=== PATIENT | female | born 1955 | race Caucasian/White ===

== ENCOUNTER 2023-03-30 12:14 | Day surgery (SDC) | payer OTHER ==
[~2023-03-30] VITALS: Ht 149.9 cm; Wt 45.8 kg
[2023-03-30 15:14] VITALS: O2SAT 96
[2023-03-30] MEDS ORDERED: NS 50 ML BAG IV ONE ×2 (15:55→17:32)
[2023-03-30] MEDS ORDERED: NS IRRIG SOLN 1000 ML IR ONE ×2 (15:55→17:32)
[2023-03-30] MEDS ORDERED: HEPARIN SODIUM, PORCINE 10,000 UNITS/ 10 ML VIAL ONE (15:55)
[2023-03-30] MEDS ORDERED: SEVOFLURANE 15 MIN GAS INH ONE ×2 (15:55→17:32)
[2023-03-30] MEDS ORDERED: ONDANSETRON HCL 4 MG/2 ML VIAL ONE ×2 (15:55→17:32)
[2023-03-30] MEDS ORDERED: BUPIVACAINE /PF 0.25% 30 ML VIAL INJ ONE ×2 (15:55→17:32)
[2023-03-30] MEDS ORDERED: KETOROLAC TROMETHAMINE 30 MG VIAL ONE (15:55)
[2023-03-30] MEDS ORDERED: ePHEDrine sulfate 50 MG/ML VIAL ONE (17:32)
[2023-03-30] MEDS ORDERED: PROPOFOL 200MG/ 20ML VIAL (DIPRIVAN) IV ONE (17:32)
[2023-03-30] MEDS ORDERED: HEPARIN SODIUM,PORCINE 10,000 UNIT/ML VIAL ONE (17:32)
[2023-03-30] MEDS ORDERED: METOCLOPRAMIDE HCL 10 MG/2 ML VIAL ONE (17:32)
[2023-03-30] MEDS ORDERED: LIDOCAINE 2%, 20 ML MDV ONE (17:32)
[2023-03-30] MEDS ORDERED: LEVOFLOXACIN 500 mg/D5W 100 mL IVPB IV ONE (17:32)
[2023-03-30] MEDS ORDERED: LR 1,000 ML IV SCH (18:00)
[2023-03-30] MEDS ORDERED: HYDROmorphone 2 MG/ML VIAL IVP PRN (18:00)
[2023-03-30] MEDS ORDERED: HYDROmorphone 1 MG/ML INJ. CARTRIDGE IVP PRN (18:00)
[2023-03-30] MEDS ORDERED: HYDROcodone/ACETAMIN 5-325 MG TAB (NORCO/ VICODIN) PO PRN (18:30)
[2023-03-30] MEDS ORDERED: D5/0.45 NS 1,000 ML IV SCH (18:30)
[2023-03-30 20:25] VITALS: BP_SYST 112; PULSE 90; RESP 16
== END 2023-03-30 21:00 | disposition home or self-care (01) ==
LOC: SMU 12:14 → SDS 12:14
PROVIDERS: ATTEND Colon & Rectal Surgery
DX: C25.9 Malignant neoplasm of pancreas, unspecified (principal); C56.9 Malignant neoplasm of unspecified ovary; Z88.1 Allergy status to other antibiotic agents; I10 Essential (primary) hypertension; E11.9 Type 2 diabetes mellitus without complications; E78.5 Hyperlipidemia, unspecified; Z82.3 Family history of stroke; Z79.899 Other long term (current) drug therapy
CPT/HCPCS: 87081; 36561; 82962; 71045; 77001; J3490; J1644 ×2; J1885; J1956; J2001; J2765; J2405; J2704; J7120; C1788; 76000

== ENCOUNTER 2024-02-19 14:43 | Inpatient (IN) | payer OTHER ==
[~2024-02-19] VITALS: Ht 149.9 cm; Wt 39.9 kg
[2024-02-19 16:12] LABS: BASOPHILS # (AUTO) 0.1 K/uL (0.0-0.2); BASOPHILS % (AUTO) 0.8 % (0.0-2.0); EOSINOPHILS % (AUTO) 0.5 % (0.0-4.0); HEMATOCRIT 34.9 % (36-48); HEMOGLOBIN 11.6 g/dL (12.0-16.0); LYMPHOCYTES # (AUTO) 1.3 K/uL (1.0-5.5); LYMPHOCYTES % (AUTO) 18.9 % (20.5-51.5); MEAN CORPUSCULAR HEMOGLOBIN 27 pg (27-31); MEAN CORPUSCULAR HGB CONC 33 % (32-36); MEAN CORPUSCULAR VOLUME 81 fL (79.0-98.0); MONOCYTES # (AUTO) 0.8 K/uL (0.0-1.0); MONOCYTES % (AUTO) 11.8 % (1.7-9.3); NEUTROPHILS # (AUTO) 4.6 K/uL (1.8-7.7); PLATELET COUNT (AUTO) 344 K/uL (130-430); RED BLOOD CELL COUNT(AUTO) 4.31 MIL/uL (4.2-6.2); RED CELL DISTRIBUTION WIDTH 17.8 % (9.0-15.0); WHITE BLOOD COUNT (AUTO) 6.7 K/uL (4.8-10.8)
[2024-02-19 16:22] LABS: CALCIUM 9.2 mg/dL (8.4-11.0); CREATININE 1.06 mg/dL (0.55-1.30); POTASSIUM 3.3 mmol/L (3.5-5.1)
[2024-02-19] MEDS ORDERED: ALBUTEROL SULFATE 0.083% 2.5 MG/3 ML VIAL.NEB INH PRN (18:45)
[2024-02-19] MEDS ORDERED: HYDROcodone/ACETAMIN 5-325 MG TAB (NORCO/ VICODIN) PO PRN (18:45)
[2024-02-19] MEDS ORDERED: MORPHINE 2 MG/ML INJ. SYRINGE IVP PRN (18:45)
[2024-02-19] MEDS ORDERED: HYDROcodone/ACETAMIN 10-325 MG TAB PO PRN (18:45)
[2024-02-19] MEDS: NACL 0.9% 1,000 ML IV ONE (19:00)
[2024-02-19 19:15] LABS: INR 1.1 (0.8-1.2); PROTHROMBIN TIME 11.3 SECS (9.5-12.5)
[2024-02-19 19:58] VITALS: BP_SYST 136; PULSE 89; O2SAT 100
[2024-02-19 22:25] LABS: BILIRUBIN,URINE 1+ (NEGATIVE); BLOOD, URINE 3+ (NEGATIVE); CLARITY/URINE SL CLOUDY (CLEAR); COLOR,URINE YELLOW (YELLOW); GLUCOSE,URINE NEGATIVE (NEGATIVE); KETONES,URINE TRACE (NEGATIVE); LEUKOCYTE ESTERASE ,URINE 2+ (NEGATIVE); NITRITE, URINE NEGATIVE (NEGATIVE); PROTEIN URINE 1+ (NEGATIVE); UROBILINOGEN,URINE 0.2 (0.2-1.0)
[2024-02-19 22:35] LABS: BACTERIA,URINE FEW /HPF (None Seen); HYALINE CASTS, URINE 0-10 /LPF (None Seen); MUCUS,URINE 1+ /LPF (None Seen); RBC,URINE 50-80 /HPF (0-3); WBC,URINE 20-50 /HPF (0-3)
[2024-02-19] MEDS ORDERED: hydrALAZINE HCL 20 MG/ML VIAL IVP PRN (23:15)
[2024-02-20] MEDS ORDERED: LISINOPRIL 10 MG TABLET (PRINIVIL) ONE (00:04)
[2024-02-20] MEDS: lisinopriL 20 MG TABLET PO ONE ×2 (00:15→18:31)
[2024-02-20 04:57] LABS: BASOPHILS % (AUTO) 0.4 % (0.0-2.0); EOSINOPHILS # (AUTO) 0.1 K/uL (0.0-0.4); HEMATOCRIT 33.5 % (36-48); LYMPHOCYTES # (AUTO) 1.3 K/uL (1.0-5.5); LYMPHOCYTES % (AUTO) 17.5 % (20.5-51.5); MEAN CORPUSCULAR HEMOGLOBIN 27 pg (27-31); MEAN CORPUSCULAR HGB CONC 33 % (32-36); MEAN CORPUSCULAR VOLUME 82 fL (79.0-98.0); MONOCYTES # (AUTO) 0.8 K/uL (0.0-1.0); MONOCYTES % (AUTO) 11.2 % (1.7-9.3); NEUTROPHILS # (AUTO) 5.3 K/uL (1.8-7.7); NEUTROPHILS % (AUTO) 69.9 % (40.0-70.0); PLATELET COUNT (AUTO) 241 K/uL (130-430); RED BLOOD CELL COUNT(AUTO) 4.11 MIL/uL (4.2-6.2); RED CELL DISTRIBUTION WIDTH 17.7 % (9.0-15.0); WHITE BLOOD COUNT (AUTO) 7.6 K/uL (4.8-10.8)
[2024-02-20 05:14] LABS: ALBUMIN 2.7 g/dL (3.4-4.8); CALCIUM 8.4 mg/dL (8.4-11.0); CREATININE 0.8 mg/dL (0.55-1.30); POTASSIUM 3.3 mmol/L (3.5-5.1); TOTAL BILIRUBIN 0.4 mg/dL (0.0-1.0)
[2024-02-20] MEDS: cefTRIAXone 1 GM in D5W 50 ML IV SCH (12:55)
[2024-02-20 15:59] VITALS: O2SAT 98
[2024-02-20] MEDS ORDERED: OMEP40CA20 PO (16:19)
[2024-02-20] MEDS ORDERED: FAMO40TA7 PO (16:19)
[2024-02-20] MEDS ORDERED: LISI10TA29 PO (16:19)
[2024-02-20] MEDS ORDERED: ONDA8TAB60 PO (16:19)
[2024-02-20] MEDS ORDERED: DEXA4TAB PO (16:19)
[2024-02-20] MEDS ORDERED: CIPROFLOXACIN LACT 400 MG/D5W 200 ML IV SCH (17:00)
[2024-02-20] MEDS: KCL 20 mEq in NS 1000 mL 1,000 ML IV ONE ×2 (17:45→23:03)
[2024-02-20 18:23] VITALS: BP_SYST 158; PULSE 75; RESP 18; TEMP 96.9; O2SAT 99
[2024-02-20] MEDS: DECADRON 4 MG TABLET PO SCH (18:30)
[2024-02-20] MEDS: PANTOPRAZOLE SODIUM 40 MG/VIAL (PROTONIX) IVP SCH (18:30)
[2024-02-20] MEDS: SIMETHICONE 80 MG TAB.CHEW PO SCH (18:31)
[2024-02-20 20:00] VITALS: BP_SYST 159; PULSE 82; RESP 18; TEMP 97.5; O2SAT 100
[2024-02-21 01:09] VITALS: BP_SYST 161; PULSE 75; RESP 16; TEMP 97.4; O2SAT 98
[2024-02-21 06:33] LABS: BASOPHILS % (AUTO) 0.3 % (0.0-2.0); HEMATOCRIT 31.2 % (36-48); HEMOGLOBIN 10.4 g/dL (12.0-16.0); LYMPHOCYTES # (AUTO) 0.6 K/uL (1.0-5.5); LYMPHOCYTES % (AUTO) 12.2 % (20.5-51.5); MEAN CORPUSCULAR HEMOGLOBIN 27 pg (27-31); MEAN CORPUSCULAR HGB CONC 34 % (32-36); MEAN CORPUSCULAR VOLUME 81 fL (79.0-98.0); MONOCYTES # (AUTO) 0.4 K/uL (0.0-1.0); MONOCYTES % (AUTO) 7.5 % (1.7-9.3); NEUTROPHILS # (AUTO) 3.8 K/uL (1.8-7.7); PLATELET COUNT (AUTO) 237 K/uL (130-430); RED BLOOD CELL COUNT(AUTO) 3.85 MIL/uL (4.2-6.2); RED CELL DISTRIBUTION WIDTH 18.3 % (9.0-15.0); WHITE BLOOD COUNT (AUTO) 4.8 K/uL (4.8-10.8)
[2024-02-21 07:10] LABS: ALBUMIN 2.8 g/dL (3.4-4.8); CALCIUM 8.6 mg/dL (8.4-11.0); CREATININE 0.87 mg/dL (0.55-1.30); TOTAL BILIRUBIN 0.3 mg/dL (0.0-1.0); TOTAL PROTEIN, SERUM 6.2 g/dL (6.4-8.3)
[2024-02-21 07:25] LABS: POTASSIUM 2.9 mmol/L (3.5-5.1)
[2024-02-21 08:00] VITALS: BP_SYST 178; PULSE 79; RESP 16; TEMP 98; O2SAT 100; O2SAT 99
[2024-02-21] MEDS: lisinopriL 20 MG TABLET PO SCH (09:27)
[2024-02-21] MEDS: PANTOPRAZOLE SODIUM 40 MG/VIAL (PROTONIX) IVP ONE (09:28)
[2024-02-21] MEDS ORDERED: POTASSIUM CHLORIDE 40 MEQ, LIDOCAINE JECT 2% PF 100 MG 50 MG in NS 250 ML IV ONE (11:00)
[2024-02-21 12:25] VITALS: BP_SYST 157; PULSE 78; RESP 17; TEMP 97.2; O2SAT 97
[2024-02-21] MEDS: POTASSIUM CHLORIDE 20 MEQ/PKT PACKET PO ONE (14:25)
[2024-02-21 16:46] VITALS: BP_SYST 152; PULSE 80; RESP 16; TEMP 97.7; O2SAT 99
[2024-02-21 20:00] VITALS: BP_SYST 158; RESP 18; TEMP 98.8; O2SAT 100
[2024-02-21] MEDS: LEVOFLOXACIN 250 MG/D5W 50 ML IV SCH (22:11)
[2024-02-22] VITALS (7 sets, daily range): BP systolic 154–182; PULSE 70–89; RESP 18–20; TEMP 97.9–98.6; O2SAT 96–100
[2024-02-22] MEDS: hydrALAZINE HCL 20 MG/ML VIAL IVP PRN (00:21)
[2024-02-22 05:32] LABS: BASOPHILS % (AUTO) 0.2 % (0.0-2.0); EOSINOPHILS % (AUTO) 0.1 % (0.0-4.0); HEMATOCRIT 32.2 % (36-48); HEMOGLOBIN 10.7 g/dL (12.0-16.0); LYMPHOCYTES # (AUTO) 0.7 K/uL (1.0-5.5); LYMPHOCYTES % (AUTO) 10.1 % (20.5-51.5); MEAN CORPUSCULAR HEMOGLOBIN 27 pg (27-31); MEAN CORPUSCULAR HGB CONC 33 % (32-36); MEAN CORPUSCULAR VOLUME 81 fL (79.0-98.0); MONOCYTES # (AUTO) 0.4 K/uL (0.0-1.0); MONOCYTES % (AUTO) 5.4 % (1.7-9.3); NEUTROPHILS # (AUTO) 6.1 K/uL (1.8-7.7); NEUTROPHILS % (AUTO) 84.2 % (40.0-70.0); PLATELET COUNT (AUTO) 267 K/uL (130-430); RED BLOOD CELL COUNT(AUTO) 3.98 MIL/uL (4.2-6.2); RED CELL DISTRIBUTION WIDTH 18.1 % (9.0-15.0)
[2024-02-22 06:03] LABS: ALBUMIN 2.7 g/dL (3.4-4.8); CALCIUM 8.8 mg/dL (8.4-11.0); CREATININE 0.9 mg/dL (0.55-1.30); TOTAL BILIRUBIN 0.3 mg/dL (0.0-1.0)
[2024-02-22 07:42] LABS: WHITE BLOOD COUNT (AUTO) 7.3 K/uL (4.8-10.8)
[2024-02-22 07:50] LABS: POTASSIUM 2.6 mmol/L (3.5-5.1)
[2024-02-22] MEDS: PANTOPRAZOLE SODIUM 40 MG/VIAL (PROTONIX) IVP SCH (10:18)
[2024-02-22] MEDS: MINERAL OIL 30 ML UDC PO ONE (14:40)
[2024-02-22] MEDS: metroNIDAZOLE 250 mg/NS 50 ML IV SCH (18:16)
[2024-02-22] MEDS: POTASSIUM CHLORIDE 40 MEQ in NS 250 ML IV ONE (18:43)
[2024-02-22] MEDS: MINERAL OIL 30 ML UDC PO SCH (20:53)
[2024-02-23] VITALS: BP_SYST 144; PULSE 76; RESP 20; TEMP 98
[2024-02-23 08:20] VITALS: BP_SYST 166; PULSE 73; RESP 16; TEMP 97.9; O2SAT 99
[2024-02-23] MEDS ORDERED: KCL 40 mEq in 100 mL (PREMIX) 100 ML IV ONE (09:00)
[2024-02-23] MEDS: lisinopriL 20 MG TABLET PO SCH (09:00)
[2024-02-23] MEDS: POTASSIUM CHLORIDE 20 MEQ TABLET.ER PO SCH (09:43)
[2024-02-23] MEDS: KCL 20 mEq in 100 mL (PREMIX) 200 ML IV ONE (09:45)
[2024-02-23] MEDS ORDERED: GASTROGRAFIN 120 ML ONE (10:51)
[2024-02-23] MEDS ORDERED: LISI10TA29 PO (12:08)
[2024-02-23] MEDS ORDERED: AMLO2.5T2 PO (12:08)
[2024-02-23 14:41] LABS: CREATININE 0.87 mg/dL (0.55-1.30); POTASSIUM 3.6 mmol/L (3.5-5.1)
[2024-02-23] MEDS: ONDANSETRON HCL 4 MG/2 ML VIAL IVP PRN (18:00)
[2024-02-23] MEDS: ACETAMINOPHEN 325 MG TABLET PO PRN (18:01)
[2024-02-23 20:00] VITALS: BP_SYST 145; PULSE 73; RESP 20; TEMP 98.9; O2SAT 99
[2024-02-23 22:54] VITALS: BP_SYST 145; PULSE 73; RESP 20; TEMP 98.9; O2SAT 99
== END 2024-02-23 23:19 | disposition home or self-care (01) | DRG 394 ==
LOC: SED 14:43 → SMU 18:37
PROVIDERS: ADMIT Family Medicine; ATTEND Family Medicine
DX: K63.89 Other specified diseases of intestine (principal); C25.9 Malignant neoplasm of pancreas, unspecified; K35.80 Unspecified acute appendicitis; N13.30 Unspecified hydronephrosis; K57.32 Diverticulitis of large intestine without perforation or abscess without bleeding; E44.0 Moderate protein-calorie malnutrition; Z68.1 Body mass index [BMI] 19.9 or less, adult; K56.600 Partial intestinal obstruction, unspecified as to cause; E87.6 Hypokalemia; I10 Essential (primary) hypertension; B96.89 Other specified bacterial agents as the cause of diseases classified elsewhere; Z63.4 Disappearance and death of family member; Z85.07 Personal history of malignant neoplasm of pancreas; Z85.43 Personal history of malignant neoplasm of ovary; K52.9 Noninfective gastroenteritis and colitis, unspecified
CPT/HCPCS: 36415; 71045; 74018; 74250; 76770; 80048; 80053; 81000; 81001; 81015; 85025; 85610; 85730; 86304; 87045-TC; 87046; 87081; 87086; 87177; 87230; 89055; 93005; 94070; 94760; 99285; C9113; J0360; J0696; J0744; J1956; J2405; J3480; J3490; J7050; J7060; J8540; Q9963